=== PATIENT | female | born 1995 | race Native Hawaiian/Other Pacific Islander ===

== ENCOUNTER 2018-07-16 22:11 | Emergency (ER) | payer OTHER ==
[~2018-07-16] VITALS: Ht 165.1 cm; Wt 84.4 kg
[2018-07-17 00:04] VITALS: BP 115/68; TEMP 98.5
== END 2018-07-17 00:06 | disposition home or self-care (01) ==
LOC: ED 22:11
DX: N30.90 Cystitis, unspecified without hematuria (principal)
CPT/HCPCS: 81000; 87086; 87088; 99283